=== PATIENT | male | born 1985 | race Caucasian/White ===

== ENCOUNTER 2019-10-15 06:23 | Emergency (ER) | payer OTHER ==
[~2019-10-15] VITALS: Ht 170.2 cm; Wt 90.7 kg
[~2019-10-15 06:23] MED LIST: ANECREAM5 GM TOP; AUGMENTIN 500-1 EACH PO; AUGMENTIN 875-1 EACH PO; BACTRIM DS TAB1 EACH PO; COLACE 100 MG100 MG PO; HYDROCODONE-APA1 TA1 PO; KEFLEX500 MG PO; NEURONTIN 300300 M1 PO; PERCOCET 5-3251 EACH PO; PERCOCET PO
[2019-10-15 06:43] VITALS: BP 128/82
== END 2019-10-15 06:43 | disposition left against medical advice (07) ==
LOC: M.ERS 06:23
DX: R05 Cough (principal); F17.210 Nicotine dependence, cigarettes, uncomplicated